=== PATIENT | female | born 1960 | race Caucasian/White ===

== ENCOUNTER 2020-01-09 16:12 | Outpatient (REF) | payer MEDICARE, SELFPAY ==
--- NOTE | 2020-01-09 | CT_ITS ---
EXAMINATION: CT CHEST SCREENING CLINICAL INFORMATION: Nicotine dependence. COMPARISON: CT chest 12/16/2018 TECHNIQUE: Multidetector volumetric CT imaging of the chest is performed without contrast using low dose technique. Additional 2D coronal and sagittal reformatted images and axial 3D maximum intensity projection (MIP) images are generated on the CT workstation. This CT examination was performed using dose optimization techniques as appropriate, variously including the following: *Automated exposure control *Adjustment of mA and/or kV according to patient size (this includes techniques or standardized protocols for targeted exams where dose is matched to indication/reason for exam; i.e. extremities or head) *Use of iterative reconstruction technique DLP: 29 mGy-cm FINDINGS: LUNGS: There is centrilobular emphysematous changes of both lungs with bilateral apical pleural thickening and parenchymal scarring. There are several small pulmonary nodules visualized. Some of the nodules in the right lung apex are ill-defined. There is a 3 mm subpleural-based nodule right upper lobe axial image 177/6, 7 mm nodule pleural-based right lower lobe axial image 202/6, previously measured 3 x 5 mm, 4 mm nodule right upper lobe anterior segment image 166/6. These nodules are stable. No focal mass or consolidation seen. MEDIASTINUM: The thyroid lobes are symmetrical and normal. The central trachea and the bronchi are widely patent. Heart size and the great vessels are normal caliber. There are coronary artery calcifications present. No pericardial effusion seen. The central trachea and bronchi are widely patent. PLEURA: There is no pleural effusion. No pleural mass or thickening. AXILLA: No lymphadenopathy. UPPER ABDOMEN: Small hypodense liver lesion seen previously and barely visible. Rest of the visualized spleen, pancreas and bilateral adrenal glands are unremarkable. OSSEOUS STRUCTURES: No lytic or sclerotic process seen. CT/CT lung screening IMPRESSION: 1. Centrilobular emphysema without acute pneumonic process. 2. Stable multiple pulmonary nodules. The right apical nodules have fuzzy borders and ill-defined on 8 mm thick mm images. 3. No abnormal mediastinal or axillae lymphadenopathy. ASSESSMENT: Lung-RADS category 2: Benign RECOMMENDATION: Low-dose annual CT chest.
== END 2020-01-09 16:13 | disposition home or self-care (01) ==
LOC: HO.CT 16:12
PROVIDERS: PCP Internal Medicine; Visit Provider Physician Assistant Medical
DX: F17.210 Nicotine dependence, cigarettes, uncomplicated (principal)
CPT/HCPCS: 71250